=== PATIENT | female | born 1990 | race Caucasian/White ===

== ENCOUNTER 2019-03-12 22:12 | Observation (INO) | payer OTHER ==
[2019-03-13] MEDS ORDERED: hydrOXYzine HCl 25 MG Tab PO ONE (00:02)
--- NOTE | 2019-03-13 04:03 | HP ---
CHIEF COMPLAINT: Blood on toilet paper. HISTORY OF PRESENT ILLNESS: The patient is a 28-year-old female at 29 weeks 3 days' gestation, G2, P0-0-1-0 with a past medical history of type 1 diabetes. She noticed blood on the toilet paper when she went to the bathroom and was concerned, so came to Labor and Delivery. She has had some sharp pain bilaterally in the groin and some pressure, especially when she uses the bathroom, but no contractions. She had some dizziness, nausea, and vomiting yesterday. Some shortness of breath. No chest pain. She is still feeling baby move. The patient sees Dr. Henderson and was prescribed Macrobid for an asymptomatic bacteriuria on Tuesday. PAST OBSTETRICAL HISTORY: Miscarriage in 1st , very early in the . No specific gestation, middle age. PAST MEDICAL HISTORY: Vitamin D deficiency, hyperlipidemia, depression, microalbuminuria, type 1 diabetes, asthma, tibia-fibula fracture. PAST SURGICAL HISTORY: Kidney biopsy, ultrasound-guided wisdom teeth extraction, open reduction of tib-fib fracture. FAMILY HISTORY: Father, allergies. Mother, thyroid disease and lupus. Maternal aunt, migraines, stroke, thyroid cancer, and diabetes. Paternal grandmother, cancer. Paternal grandfather, diabetes. SOCIAL HISTORY: Lives in [place]. ALLERGIES: None. MEDICATIONS: Albuterol as needed, insulin, vitamin D, nitrofurantoin, vitamin. OBJECTIVE: Vital signs: Blood pressure 134/77, pulse 78, temp 98.2, respirations 16. heart tones in the 140s with accelerations, category 1. [place] shows some irritability, but no contractions. HEENT: Extraocular movements are intact. Mucous membranes are moist. Cardiac: Regular rate and rhythm. No murmurs noted. Lungs: Clear to auscultation bilaterally. Abdomen: Gravid. Presentation seems vertex at this point. Bowel sounds are present. No pain or tenderness or distention or organomegaly. Extremities: No edema, erythema, or pain. ASSESSMENT: Cassi is a 28-year-old female at 29 weeks and 3 days' gestation, presenting with spotting and some mild cramping once in a while. PLAN: We will admit the patient for observation. We will call Dr. Hines if there is increased bleeding or increased cramping. Encourage the patient to drink water. Fifty milligram p.o. of Vistaril was given for the patient's anxiety. The patient was seen by myself and Dr. Hines. Assessment and plan are under advisement of Dr. Hines. [facility] /[id number]
[2019-03-13 08:10] VITALS: BP 108/69
== END 2019-03-13 09:25 | disposition home or self-care (01) ==
LOC: DL.OBCHECK 22:12 → DL.OB 03-13 → UNDOADMOB 03-13 00:04
PROVIDERS: ADMIT Obstetrics & Gynecology; ATTEND Obstetrics & Gynecology
DX: O26.853 Spotting complicating pregnancy, third trimester (principal); O24.414 Gestational diabetes mellitus in pregnancy, insulin controlled; Z3A.29 29 weeks gestation of pregnancy; E55.9 Vitamin D deficiency, unspecified; E78.5 Hyperlipidemia, unspecified; J45.909 Unspecified asthma, uncomplicated
CPT/HCPCS: 81001; A9270; G0378